=== PATIENT | male | born 1960 | race Caucasian/White ===

== ENCOUNTER → 2017-10-29 | Outpatient (CLI) | payer OTHER | END | disposition home or self-care (01) | LOC: CVU 07:40 | PROVIDERS: ATTEND Internal Medicine Cardiovascular Disease | DX: I35.0 Nonrheumatic aortic (valve) stenosis (principal); I70.213 Atherosclerosis of native arteries of extremities with intermittent claudication, bilateral legs; R41.3 Other amnesia | CPT/HCPCS: 93017; 93306 ==